=== PATIENT | male | born 1940 ===

== ENCOUNTER 2021-10-25 18:29 | Emergency (ER) | payer SELFPAY ==
[2021-10-25] MEDS ORDERED: HYDROcodone/Acetaminophen 5/325 mg Tablet ONE (19:20)
[2021-10-25] MEDS ORDERED: Ibuprofen 200 MG TAB ONE (19:21)
== END 2021-10-25 19:57 | disposition home or self-care (01) ==
LOC: ERS 18:29
DX: S40.022A Contusion of left upper arm, initial encounter (principal); W19.XXXA Unspecified fall, initial encounter